=== PATIENT | female | born 2000 | race Caucasian/White ===

== ENCOUNTER → 2024-10-10 10:47 | Outpatient (REF) | payer OTHER, SELFPAY ==
[2024-10-11 16:08] LABS: Mumps Virus IgG Positive; Rubeola (Measles) IgG Positive; Varicella Zoster IgG (VZV) Positive
[2024-10-11 19:47] LABS: Hepatitis B Surface Antibody Negative
[2024-10-11 20:55] LABS: Rubella Positive
[2024-10-12 17:37] LABS: Quantiferon Mitogen minus NIL 9.98 IU/mL; Quantiferon NIL 0.02 IU/mL; Quantiferon TB Gold Plus Negative (Negative)
== END ==
LOC: REG 10:47
PROVIDERS: ATTENDING PHYSICIAN Nurse Practitioner Family
DX: Z23 Encounter for immunization (principal)
CPT/HCPCS: 86480; 86706; 86735; 86762; 86765; 86787